=== PATIENT | male | born 1945 | race Hispanic/Latino ===

== ENCOUNTER 2017-12-11 13:58 | Outpatient (CLI) | payer MEDICARE ==
--- NOTE | 2017-12-11 21:07 | XRay Report ---
FINAL REPORT EXAM: XR KNEE 4+V RT HISTORY: RIGHT KNEE PAIN TECHNIQUE: Four views right knee Comparison: None FINDINGS: There is global osteopenia. There is medial femoral condylar squaring. There is medial joint space narrowing. There is no significant suprapatellar bursal effusion. There is superior patellar pole enthesophyte and superior and inferior patellar pole osteophytes. There is lateral patellar tilting within incongruous patellofemoral joint space. 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 Global osteopenia. No significant suprapatellar bursal effusion.
== END 2017-12-11 13:59 | disposition home or self-care (01) ==
LOC: SPVIMAG 13:58
PROVIDERS: ATTEND Orthopaedic Surgery Sports Medicine
DX: M17.11 Unilateral primary osteoarthritis, right knee (principal); M85.861 Other specified disorders of bone density and structure, right lower leg